=== PATIENT | female | born 1980 | race Caucasian/White ===

== ENCOUNTER 2019-01-04 05:40 | Inpatient (IN) | payer OTHER ==
[2019-01-04] MEDS ORDERED: Bicitra 30 ML UDCUP PO SCH (06:01)
[2019-01-04] MEDS ORDERED: Promethazine HCl 25 MG/ML VIAL IM PRN ×4 (06:01→10:48)
[2019-01-04] MEDS ORDERED: hydrALAZINE 20 MG/ML VIAL SLOW IVP PRN ×2 (06:01→10:48)
[2019-01-04] MEDS ORDERED: Ondansetron PF 4 MG/2 ML Vial IVP PRN ×4 (06:01→10:48)
[2019-01-04] MEDS ORDERED: Lactated Ringer's 1,000 ML IV SCH ×2 (06:01)
[2019-01-04] MEDS ORDERED: CEFAZOLIN 2 GM in Premix Bag 1 BAG IVPB SCH (06:01)
[2019-01-04 06:36] VITALS: BMI 27.4
[2019-01-04 06:38] LABS: Hemoglobin 11.3 g/dL (12.0-16.0); Mean Corpuscular HGB CONC 33.6 g/dL (32.0-36.0); Mean Corpuscular Hemoglobin 27.9 pg (27.0-31.0); Mean Corpuscular Volume 82.8 fL (78.0-98.0); Mean Platelet Volume 8.3 fL (7.4-10.4); Platelet Count 232 thou/uL (130-400); Red Blood Cell (RBC) Count 4.04 mill/uL (4.20-5.40); White Blood Cell (WBC) Count 13.3 thou/uL (4.8-10.8)
[2019-01-04] MEDS ORDERED: FLU VACC QS2019-20(6MOS UP)/PF 60 MCG/0.5 ML SYRINGE IM ONE (07:00)
[2019-01-04 07:19] LABS: HBSAg Index 0.19 S/CO (0-0.99); Hep B Surf Ag Non-Reactive S/CO (NonReactive); Syphilis Antibody Nonreactive (Nonreactive); Syphilis Antibody Index 0.05 S/CO (<1.00 Non-Reactive)
[2019-01-04] MEDS ORDERED: MORPHINE 5 MG/10 ML PF VIAL ONE (07:19)
[2019-01-04] MEDS ORDERED: Ondansetron PF 4 MG/2 ML Vial ONE ×2 (07:20→10:46)
[2019-01-04] MEDS ORDERED: ePHEDrine/0.9% NaCl/PF SYRINGE 50 mg/10 ml ONE (07:20)
[2019-01-04] MEDS ORDERED: Oxytocin 10 UNITS/ML VIAL ONE (07:20)
[2019-01-04] MEDS ORDERED: Ketorolac Tromethamine 30 MG/ML VIAL IVP PRN ×2 (08:24→09:57)
[2019-01-04] MEDS ORDERED: Naloxone HCl 0.4 mg/ml Vial IVP PRN ×4 (08:24→09:57)
[2019-01-04] MEDS ORDERED: diphenhydrAMINE 50 MG/ML VIAL IVP PRN ×2 (08:24→09:57)
[2019-01-04] MEDS ORDERED: Promethazine HCl 25 MG SUPP PR PRN ×2 (08:24→09:57)
[2019-01-04] MEDS ORDERED: Naloxone HCl 0.4 mg/ml Vial IV PRN ×2 (08:24→09:57)
[2019-01-04] MEDS ORDERED: Communication Order-Pharmacy FS SCH ×2 (08:30→10:00)
[2019-01-04] MEDS ORDERED: Meperidine HCl/PF 25 MG/ML VIAL ONE (09:41)
[2019-01-04] MEDS ORDERED: NS / Oxytocin 40 units/1000ml 1,000 ML ONE (09:51)
[2019-01-04] MEDS ORDERED: L&D-Morphine 4 MG/ML VIAL SLOW IVP PRN (09:57)
[2019-01-04] MEDS ORDERED: Ketorolac Tromethamine 30 MG/ML VIAL ONE (09:57)
[2019-01-04] MEDS ORDERED: HYDROmorphone 2 MG/ML VIAL SLOW IVP PRN (09:57)
[2019-01-04] MEDS ORDERED: Meperidine HCl/PF 25 MG/ML VIAL SLOW IVP PRN (09:57)
[2019-01-04] MEDS ORDERED: Ondansetron HCl/PF 4 MG/2 ML Vial IVP PRN (09:57)
[2019-01-04] MEDS ORDERED: Ketorolac Tromethamine 30 MG/ML VIAL IVP SCH (10:00)
--- NOTE | 2019-01-04 10:15 | RAD ---
SUPINE ABDOMEN: INDICATIONS: Postop evaluation. FINDINGS: Radiopaque tubing overlies the mid abdomen. There is a linear metallic device, consistent with a need le, overlying the lateral left abdomen. The bowel gas pattern is nonspecific with scattered small and large bowel gas. No other radiopaque fo reign body identified. POS: OFF
[2019-01-04] MEDS ORDERED: ePHEDrine 50 MG/ML VIAL ONE (10:46)
[2019-01-04] MEDS ORDERED: NS / Oxytocin 40 units/1000ml 1,000 ML IV SCH (10:48)
[2019-01-04] MEDS ORDERED: Meperidine HCl/PF 25 MG/ML VIAL IM PRN ×2 (10:48→22:00)
[2019-01-04] MEDS ORDERED: Zolpidem Tartrate 5 MG TAB PO PRN (10:48)
[2019-01-04] MEDS ORDERED: diphenhydrAMINE 25 MG CAP PO PRN (10:48)
[2019-01-04] MEDS ORDERED: Lanolin Ointment 7 GM TUBE TOP PRN (10:48)
[2019-01-04] MEDS ORDERED: Adacel (T-DAP) 0.5 ML SYRINGE IM ONE (12:00)
[2019-01-04] MEDS: Lactated Ringer's 1,000 ML IV SCH ×2 (13:52→15:57)
--- NOTE | 2019-01-04 15:45 | OP ---
DATE OF PROCEDURE: 01/04/2019 PREOPERATIVE DIAGNOSIS: Prior section x2 at term. POSTOPERATIVE DIAGNOSES: Prior section x2 at term plus anterior abdominal adhesions of the uterus. PROCEDURE PERFORMED: Repeat low-transverse section without extension. AGILE QA TESTER: Liudmila Chatman PA-C ANESTHESIA: Subarachnoid block. MEDICATIONS: 2 g Ancef preincision, DVT prophylaxis with SCDs. DRAINS: Soto to gravity. COMPLICATIONS: None. OPERATIVE FINDINGS: 1. Vigorous male infant, cephalic presentation, 8 and 9 Apgars, 8 pounds 0 ounces, to nursery in good condition. 2. Densely adherent uterus to anterior abdominal wall superior to the level of Pfannenstiel incision. 3. Instrument count initiated with incision and postoperative abdominal x-ray negative for metallic instruments, lap counts correct x3. QBL: Pending. ESTIMATED BLOOD LOSS: Within normal limits, 750 to 1000 mL. DISPOSITION: Recovery room in good condition. DESCRIPTION OF PROCEDURE: After obtaining appropriate informed consent, the patient was taken to the operating room, where subarachnoid block was achieved without difficulty. The patient was prepped and draped in the usual manner. Previous Pfannenstiel incision identified, incised sharply, carried down to the fascia in the midline, extended superiorly and laterally with curved Willams scissors. Rectus was dissected off sharply, superiorly, and inferiorly, divided in the midline. Peritoneum entered bluntly. Dense adhesions of the uterus to the anterior abdominal wall were encountered. Some of these were taken down superior to the level of Pfannenstiel, however, could not be taken down all the way. Vesicouterine peritoneal incisions were encountered as well. These were taken down without difficulty and staying away from the bladder. Low-transverse hysterotomy was made, extended superiorly and laterally with finger fractionation. Infant's head elevated to hysterotomy. Clear fluid encountered, suctioned. Cord clamped, cut after delivery, and handed off to Team in attendance. Usual cord blood sample was obtained. Placenta was delivered manually. Hysterotomy noted to be without extension and closed using running locking #1 Monocryl suture x1 layer. Areas of raw surface on the anterior uterus were encountered due to the adhesions that were taken down to free up visualization of the lower uterine segment. These were noted to be hemostatic with horizontal mattresses of 0 chromic and application of FloSeal with pressure for 3 minutes. Suction irrigation was carried out. Re-inspection of the hysterotomy revealed it to be dry. No significant areas of bleeding were noted intra-abdominally. Abdominal x-ray was obtained because of instrument count process and revealed no evidence of intra-abdominal instruments. Rectus was inspected and noted to be dry. Fascia was reapproximated with running continuous 0 PDS suture x2. Subcutaneous tissue was irrigated, rendered hemostatic with Bovie cautery, reapproximated using a 2-0 plain gut. Skin was reapproximated using 4-0 Monocryl and Dermabond. The patient was taken to the recovery room in good condition. Job ID: [id number]
[2019-01-04] MEDS: Ibuprofen 800 MG TAB PO SCH ×2 (15:56→22:37)
[2019-01-04] MEDS: Simethicone Chewable 80 MG TAB PO PRN (20:19)
[2019-01-04] MEDS: Docusate Calcium (SURFAK) 240 MG CAP PO SCH (20:19)
[2019-01-05] MEDS: HYDROcodone/Acetaminophen 5/325 mg Tablet PO PRN ×4 (01:07→23:35)
[2019-01-05] MEDS: Ibuprofen 800 MG TAB PO SCH ×3 (04:42→21:12)
[2019-01-05] MEDS: Lactated Ringer's 1,000 ML IV SCH ×3 (04:45→14:55)
[2019-01-05 07:16] LABS: Hemoglobin 8.3 g/dL (12.0-16.0); Mean Corpuscular Hemoglobin 27.9 pg (27.0-31.0); Mean Platelet Volume 7.7 fL (7.4-10.4); Platelet Count 175 thou/uL (130-400); Red Blood Cell (RBC) Count 2.98 mill/uL (4.20-5.40); White Blood Cell (WBC) Count 13.4 thou/uL (4.8-10.8)
[2019-01-05] MEDS ORDERED: FLU VACC QS2019-20(6MOS UP)/PF 60 MCG/0.5 ML SYRINGE IM ONE (09:00)
--- NOTE | 2019-01-05 09:20 | PDOC.PP ---
Post Progress Note Post Day #: 1 Subjective: patient with mod pain, well controlled. no complaints PO intake tolerated: yes Flatus: yes Ambulation: yes Vital Signs (12 hours) Temp Pulse Resp BP Pulse Ox 01/05/19 08:10 98.1 F 78 20 93/51 L 97 01/05/19 04:40 82 16 98/54 L 01/05/19 00:20 85 16 103/60 Weight Weight 150 lb - Physical Examination General: NAD Cardiovascular: no m/r/g, RRR Respiratory: clear to auscultation bilaterally, non-labored breathing Abdominal: + bowel sounds, lochia, no distention, appropriately TTP Skin: CS incision dry & intact Psychiatric: A&Ox3, normal affect Result Diagrams: 01/05/19 06:50 Additional Labs: Post Labs Blood Type O POSITIVE 01/04/19 06:49 Hep Bs Antigen Non-Reactive S/CO (NonReactive) 01/04/19 06:23 - Assessment/Plan Hct drop more than expected with qbl. no evidence of large intrabdominal hemmorhage or continuing blood loss. will re check hct this pm
[2019-01-05] MEDS: Docusate Calcium (SURFAK) 240 MG CAP PO SCH ×2 (09:50→19:31)
[2019-01-05] MEDS: Prenatal Vitamin 1 TAB PO SCH (09:50)
[2019-01-05 18:29] LABS: #Eosinphils 0.3 thou/uL (0.0-0.7); #Lymphocytes 1.6 thou/uL (1.20-3.40); #Monocytes 0.9 thou/uL (0.11-0.59); #Neutrophils 11.1 thou/uL (1.40-6.50); %Basophils 0.2 % (0.0-1.0); %Eosinophils 2.1 % (0.0-10.0); %Lymphocytes 11.6 % (21.0-51.0); %Monocytes 6.1 % (0.0-10.0); %Neutrophils 79.9 % (42.0-75.0); Hemoglobin 8.6 g/dL (12.0-16.0); Mean Corpuscular HGB CONC 33.9 g/dL (32.0-36.0); Mean Corpuscular Hemoglobin 28.2 pg (27.0-31.0); Mean Corpuscular Volume 83.2 fL (78.0-98.0); Mean Platelet Volume 7.8 fL (7.4-10.4); Platelet Count 203 thou/uL (130-400); RBC Distribution Width 13.1 % (11.5-14.5); Red Blood Cell (RBC) Count 3.03 mill/uL (4.20-5.40); White Blood Cell (WBC) Count 13.9 thou/uL (4.8-10.8)
[2019-01-05] MEDS: Simethicone Chewable 80 MG TAB PO PRN (19:34)
[2019-01-06] MEDS: Ibuprofen 800 MG TAB PO SCH ×3 (06:17→21:21)
[2019-01-06] MEDS: HYDROcodone/Acetaminophen 5/325 mg Tablet PO PRN ×4 (06:20→21:21)
[2019-01-06] MEDS: Lactated Ringer's 1,000 ML IV SCH ×3 (06:23→13:53)
[2019-01-06] MEDS: Docusate Calcium (SURFAK) 240 MG CAP PO SCH ×2 (09:22→21:22)
[2019-01-06] MEDS: Prenatal Vitamin 1 TAB PO SCH (09:22)
[2019-01-06] MEDS: Simethicone Chewable 80 MG TAB PO PRN ×2 (09:22→13:46)
--- NOTE | 2019-01-06 10:43 | PDOC.PP ---
Post Progress Note Post Day #: 2 PO intake tolerated: yes Flatus: yes Ambulation: yes Vital Signs (12 hours) Temp Pulse Resp BP Pulse Ox 01/06/19 08:12 98.1 F 79 20 108/59 L 97 01/05/19 23:35 98.6 F 82 18 102/60 Weight Weight 150 lb - Physical Examination General: NAD Cardiovascular: no m/r/g, RRR Respiratory: clear to auscultation bilaterally, non-labored breathing Abdominal: + bowel sounds, lochia, no distention Extremities: negative homans (B) Skin: CS incision dry & intact Neurological: no gross focal deficits Psychiatric: normal affect Result Diagrams: 01/05/19 18:01 Additional Labs: Post Labs Blood Type O POSITIVE 01/04/19 06:49 Hep Bs Antigen Non-Reactive S/CO (NonReactive) 01/04/19 06:23 - Assessment/Plan HCT stable, vss, no indication of bleeding or need for transfusion baby on dc hold for billirubin dc mom in am rx for ibuprofen and norco sent from [facility] preoperatively hdez to round tomorrow
[2019-01-07] MEDS: HYDROcodone/Acetaminophen 5/325 mg Tablet PO PRN ×2 (03:47→09:34)
[2019-01-07] MEDS: Lactated Ringer's 1,000 ML IV SCH (04:02)
[2019-01-07] MEDS: Ibuprofen 800 MG TAB PO SCH (05:53)
--- NOTE | 2019-01-07 06:26 | PDOC.PP ---
Post Progress Note Post Day #: 3 s/p CS Subjective: Doing well, desires DC to home today PO intake tolerated: yes Flatus: yes Ambulation: yes Vital Signs (12 hours) Temp Pulse Resp BP Pulse Ox 01/06/19 21:20 98 01/06/19 19:38 97.7 F 78 12 106/51 L 98 Weight Weight 150 lb Vitals reviewed for last 24 hrs - Physical Examination Abdominal: lochia, no distention, appropriately TTP Extremities: negative homans (B) Skin: CS incision dry & intact (Sutured with DB over), no rash Neurological: no gross focal deficits Psychiatric: A&Ox3, normal affect Result Diagrams: 01/05/19 18:01 Additional Labs: Post Labs Blood Type O POSITIVE 01/04/19 06:49 Hep Bs Antigen Non-Reactive S/CO (NonReactive) 01/04/19 06:23 (1) Delivery by section Code(s): [id number] - Status: Acute - Assessment/Plan POD 3 doing well, OK for DC to home. Follow up 2 weeks
[2019-01-07 08:18] VITALS: BP 113/72; TEMP 97.8
[2019-01-07] MEDS: Docusate Calcium (SURFAK) 240 MG CAP PO SCH (09:33)
[2019-01-07] MEDS: Prenatal Vitamin 1 TAB PO SCH (09:33)
== END 2019-01-07 10:45 | disposition home or self-care (01) | DRG 788 ==
LOC: L&D 05:40 → 3SW 10:45
PROVIDERS: ADMIT Obstetrics & Gynecology; ATTEND Obstetrics & Gynecology
PROC: 10D00Z1 Extraction of Products of Conception, Low, Open Approach (ICD-10-PCS; principal; 2019-01-04)
PROC: 3E02340 Introduction of Influenza Vaccine into Muscle, Percutaneous Approach (ICD-10-PCS; 2019-01-05)
DX: O34.211 Maternal care for low transverse scar from previous cesarean delivery (principal); Z3A.39 39 weeks gestation of pregnancy; Z37.0 Single live birth; Z23 Encounter for immunization
CPT/HCPCS: 36415; 51702; 74018; 85027; 86780; 86850; 86900; 86901; 87340; J0690; J1885; J2175; J2274; J2405; J2590